=== PATIENT | female | born 1960 | race Hispanic/Latino ===

== ENCOUNTER 2017-10-07 09:56 | Emergency (ER) | payer BC ==
[2017-10-07] MEDS ORDERED: SODIUM CHLORIDE 0.9% 1000ML 1,000 ML IV ONE (10:56)
[2017-10-07 10:59] LABS: APPEARANCE,URINE Clear (CLEAR); BILIRUBIN,URINE Negative (NEGATIVE); COLOR,URINE Yellow (YELLOW); GLUCOSE, URINE (UA) Negative (NEGATIVE); KETONES,URINE Negative (NEGATIVE); LEUKOCYTE ESTERASE ,URINE Negative (NEGATIVE); NITRATE,URINE Negative (NEGATIVE); OCCULT BLOOD,URINE Negative (NEGATIVE); PROTEIN,URINE Negative (NEGATIVE); UROBILINOGEN,URINE 0.2 mg/dL (0.2-1.0)
[2017-10-07 11:12] LABS: BASOPHILS % (AUTO) 0.4 % (0.0-5.0); EOSINOPHILS % (AUTO) 0.5 % (0.0-8.0); HEMATOCRIT 44.4 % (36-48); LYMPHOCYTES % (AUTO) 24.4 % (21.0-51.0); MEAN CORPUSCULAR HGB CONC 33.7 g/dL (32.0-36.0); MEAN CORPUSCULAR VOLUME 85.9 fL (79-99); MONOCYTES % (AUTO) 6.2 % (3.0-13.0); NEUTROPHILS % (AUTO) 68.5 % (40.0-77.0); NUCLEATED RED BLOOD CELLS 0.1 % (0.0-0.19); PLATELET COUNT (AUTO) 242 K/uL (130-400); RED BLOOD CELL COUNT(AUTO) 5.17 MIL/uL (4.00-5.50); RED CELL DISTRIBUTION WIDTH 15.3 % (11.0-15.5); WHITE BLOOD COUNT (AUTO) 7.9 K/uL (4.8-10.8)
[2017-10-07] MEDS ORDERED: SUCRALFATE 1 GM TABLET ONE (11:16)
[2017-10-07 11:17] LABS: CREATININE 1.1 mg/dL (0.5-1.5); POTASSIUM 3.6 mmol/L (3.5-5.1)
[2017-10-07] MEDS ORDERED: FAMOTIDINE/PF 20 MG/2 ML VIAL IV ONE (11:17)
[2017-10-07 11:26] LABS: ALBUMIN 3.9 g/dL (3.5-5.0); BILIRUBIN,TOTAL 0.4 mg/dL (0.2-1.0); TOTAL PROTEIN, SERUM 8.2 g/dL (6.0-8.3)
[2017-10-07] MEDS ORDERED: KETOROLAC TROMETHAMINE 30MG/ML ONE (13:50)
[2017-10-07] MEDS ORDERED: HYOSCYAMINE SULFATE 0.125 MG TAB.SUBL SL ONE (13:51)
== END 2017-10-07 16:42 | disposition home or self-care (01) ==
LOC: EDH 09:56
DX: R10.13 Epigastric pain (principal); R19.7 Diarrhea, unspecified; I10 Essential (primary) hypertension; K21.9 Gastro-esophageal reflux disease without esophagitis; J45.909 Unspecified asthma, uncomplicated
CPT/HCPCS: 36415; 74176; 80053; 81003; 83690; 85025; 86677; 96361; 96374; 96375; 99285; J1885; J3490; J7030

== ENCOUNTER → 2021-12-01 | Outpatient (CLI) | payer BC | END | disposition home or self-care (01) | LOC: RAH 09:36 | PROVIDERS: ATTEND Family Medicine | DX: N63.42 Unspecified lump in left breast, subareolar (principal); N63.22 Unspecified lump in the left breast, upper inner quadrant; N63.41 Unspecified lump in right breast, subareolar; N63.14 Unspecified lump in the right breast, lower inner quadrant; N64.53 Retraction of nipple; N64.4 Mastodynia; R92.1 Mammographic calcification found on diagnostic imaging of breast | CPT/HCPCS: 77066 ==

== ENCOUNTER 2024-08-02 05:19 | Emergency (ER) | payer BC, MEDICARE ==
[~2024-08-02] VITALS: Ht 154.9 cm; Wt 100.7 kg
[2024-08-02] MEDS: Solu-medROL 125MG VIAL IVP ONE (05:52)
[2024-08-02 05:58] LABS: BASOPHILS # (AUTO) 0.03 K/uL (0.00-0.20); BASOPHILS % (AUTO) 0.4 % (0.0-5.0); EOSINOPHILS % (AUTO) 5.5 % (0.0-8.0); HEMATOCRIT 32.4 % (36-48); LYMPHOCYTES % (AUTO) 27.7 % (21.0-51.0); MEAN CORPUSCULAR HEMOGLOBIN 27.7 pg (27.0-33.0); MEAN CORPUSCULAR HGB CONC 30.9 g/dL (32.0-36.0); MEAN CORPUSCULAR VOLUME 89.8 fL (79-99); MONOCYTES # (AUTO) 0.5 K/uL (0.1-1.0); NEUTROPHILS # (AUTO) 4.2 K/uL (1.8-7.7); PLATELET COUNT (AUTO) 206 K/uL (130-400); RED BLOOD CELL COUNT(AUTO) 3.61 MIL/uL (4.00-5.50); WHITE BLOOD COUNT (AUTO) 7.3 K/uL (4.8-10.8)
[2024-08-02 06:05] LABS: SARS-CoV-2, RNA, NAAT NEGATIVE SARS CoV-2 (NEGATIVE)
[2024-08-02 06:09] LABS: INFLUENZA TYPE A Negative For Type A (NEGATIVE); INFLUENZA TYPE B Negative For Type B (NEGATIVE)
[2024-08-02 06:13] LABS: CREATININE 1.9 mg/dL (0.5-1.0); POTASSIUM 4.8 mmol/L (3.5-5.1)
[2024-08-02 06:30] VITALS: PULSE 69; RESP 20
[2024-08-02] MEDS: IpraTROPium/alBUTERol SULFATE 3 ML SOLUTION IH ONE (06:30)
[2024-08-02] MEDS: BUDESONIDE 0.5 MG/2 ML INH IH SCH (06:30)
[2024-08-02 06:43] LABS: B-TYPE NATRIURETIC PEPTIDE 65 pg/mL (0-100)
--- NOTE | 2024-08-02 06:44 | ERN ---
General Chief Complaint: Cough Stated Complaint: COUGH Time Seen by MD: 05:25 History of Present Illness Initial Comments Ms. Felton is a 64-year-old female significant past medical history of metastatic breast cancer and asthma comes in with a chief complaint of cough. Patient has been having increased cough and congestion. She reports that she was recently at her mom's nursing and was triggered by the smell. Patient reports that she has been having issues with breathing. Allergies: Coded Allergies: amoxicillin (Unverified Allergy, Unknown, 08/02/24) Past Medical History Past Medical History: Asthma, Diabetes-Type II, Pneumonia, Other Medical History Other: STAGE 4 LEFT BREAST CANCER Past Surgical History: None ROS Dictation Constitutional: Negative for fever,chills, and weight loss Eyes: Negative for injury, pain,redness, and discharge ENT: Negative for injury,pain or swelling Cardiovascular: Negative for chest pain, palpitations, and edema Respiratory: Positive for shortness of breath Abdomen/GI: Negative for abdominal pain, nausea, vomiting, diarrhea, and constipation Back: Negative for injury and pain : Negative for injury, bleeding and discharge MS/Extremity: Negative for injury and deformity Skin: Negative for rash, and discoloration Neuro: Negative for headache, weakness, numbness, tingling, and seizure Psych: Negative for suicide ideation, homicidal ideation, and hallucinations Physical Exam Physical Exam Dictation General: awake, alert, NAD Head/Face: Normocephalic, atraumatic Eyes: PERRL ENT: oral cavity clear, TMs clear, no signs of infection Neck: Trachea midline, supple, Cardiovascular: RRR, normal S1/S2, No MRGs, no JVD Respiratory: Diminished breath sounds bilaterally Abdomen: Soft, non-tender, non-distended, normal bowel sounds Skin: Warm, dry, normal turgor, no rash MS/Extremity: Pulses equal Neuro: COAx4, GCS 15, strength 5/5, CN 2-12 intact Psych: Normal behavior, mood, and affect normal Results Laboratory and Microbiology Lab and Micro Result Laboratory Tests Test 08/02/24 05:45 08/02/24 05:51 Influenza Type A Antigen Negative For Type A Influenza Type B Antigen Negative For Type B SARS-CoV-2, RNA, NAAT NEGATIVE SARS CoV-2 White Blood Count 7.3 K/uL (4.8-10.8) Red Blood Count 3.61 MIL/uL (4.00-5.50) L Hemoglobin 10.0 g/dL (12.0-16.0) L Hematocrit 32.4 % (36-48) L Mean Corpuscular Volume 89.8 fL (79-99) Mean Corpuscular Hemoglobin 27.7 pg (27.0-33.0) Mean Corpuscular Hemoglobin Concent 30.9 g/dL (32.0-36.0) L Red Cell Distribution Width 22.0 % (11.0-15.5) H Platelet Count 206 K/uL (130-400) Mean Platelet Volume 10.2 fL (7.5-10.5) Immature Granulocyte % (Auto) 1.4 % (0-1) H Neutrophils (%) (Auto) 58.0 % (40.0-77.0) Lymphocytes (%) (Auto) 27.7 % (21.0-51.0) Monocytes (%) (Auto) 7.0 % (3.0-13.0) Eosinophils (%) (Auto) 5.5 % (0.0-8.0) Basophils (%) (Auto) 0.4 % (0.0-5.0) Neutrophils # (Auto) 4.2 K/uL (1.8-7.7) Lymphocytes # (Auto) 2.0 K/uL (1.0-4.8) Monocytes # (Auto) 0.5 K/uL (0.1-1.0) Eosinophils # (Auto) 0.40 K/uL (0.00-0.70) Basophils # (Auto) 0.03 K/uL (0.00-0.20) Absolute Immature Granulocyte (auto 0.10 K/uL (0-1) Nucleated Red Blood Cells 0.0 % (0.0-0.19) Red Blood Cell Morphology See comments Sodium Level 141 mmol/L (136-145) Potassium Level 4.8 mmol/L (3.5-5.1) Chloride Level 107 mmol/L (101-111) Carbon Dioxide Level 27 mmol/L (21-32) Blood Urea Nitrogen 26 mg/dL (7-18) H Creatinine 1.9 mg/dL (0.5-1.0) H Glomerular Filtration Rate Calc 29 mL/min (>90) Random Glucose 99 mg/dL (70-105) Total Calcium 8.7 mg/dL (8.5-10.1) B-Type Natriuretic Peptide 65 pg/mL (0-100) MDM Patient was feeling better after inhaled corticosteroids and albuterol. Patient will be discharge MDM: Differential diagnosis: Asthma exacerbation Rationale: Tests considered and ordered secondary to shared decision making include: Previous outside records reviewed: Old ER visits. Risk of complication and/or morbidity or mortality of patient management: None Medications-Per medication reconciliation Need for hospitalization: Patient does not meet criteria for hospitalization. Need for emergency major/minor surgery: No There are no social concerns with this patient. Prescription drug management Prescriptions will include symptomatic care Patient's prior external medical records from other ER visits were reviewed by me as indicated. Prior testing and results from previous visits were reviewed. Prior tests were taken into account with medical decision making and resource utilization, independent historian/historians were used to obtain complete medical history. I independently interpreted the test that were performed, results were reviewed by me and considered findings on radiology if ordered. Medical management and examination interpretation discussions were had by me with other qualified healthcare professionals as indicated for the patient's c are. ED Course Orders Procedure Category Date Status Time Influenza Type A & B, LAB 08/02/24 Complete Rapid 05:38 Covid Rna Naat LAB 08/02/24 Complete 05:38 Cbc With Differential LAB 08/02/24 Complete 05:42 B-Type Natriuretic LAB 08/02/24 Complete Peptide 05:42 Chest 1vw RAD 08/02/24 Taken 05:42 Ipratropium/Albuterol PHA 08/02/24 Complete Neb (Duoneb) 06:00 Methylprednisolone PHA 08/02/24 Complete Succ 125mg (Solu-Medr 06:00 Basic Metabolic Panel LAB 08/02/24 Complete 05:42 Budesonide 0.5 Mg/2 PHA 08/02/24 In Process Ml Inh (Pulmicort 0. 06:00 Current Medications Medications (Trade) Dose Ordered Sig/Ambar Route PRN Reason Start Time Stop Time Status Last Admin Dose Admin Albuterol (DUOneb) 1 udvial ONCE ONCE IH 08/02/24 06:00 08/02/24 06:01 DC 08/02/24 06:30 Budesonide (Pulmicort 0.5 Mg/2ml) 0.5 mg BIDRESP IH 08/02/24 06:00 12/30/24 05:59 08/02/24 06:30 Methylprednisolone Sodium Succinate (Solu-medROL 125MG) 125 mg ONCE ONCE IVP 08/02/24 06:00 08/02/24 06:01 DC 08/02/24 05:52 Vital Signs Date Time Temp Pulse Resp B/P (MAP) Pulse Ox O2 Delivery O2 Flow Rate FiO2 08/02/24 06:30 69 20 08/02/24 05:48 80 16 126/64 99 Room Air* 0 21 08/02/24 05:21 96.8 71 18 127/86 100 Room Air DX & DISP Disposition: Discharge Departure Impression: Primary Impression: Asthma exacerbation Condition: Stable Scripts Budesonide/Formoterol Fumarate (Symbicort 160-4.5 Mcg Inhaler) 160 Mcg-4.5 Mcg/Actuation Hfa.aer.ad 2 PUFF IH BID for 30 Days, #10.2 GM 0 Refills Prov: ROSEANNA LOPES MD 08/02/24 Additional Instructions: Please follow up with your primary care physician for continuance of care in the next 1-7 days. Please continue to take your rescue inhaler as well as your new medication as your maintenance medicine for your asthma. Referrals: CLARISSA FINNEY MD (PCP) ROSEANNA LOPES MD Aug 02, 2024 06:44
[2024-08-02] MEDS ORDERED: BUDE10.2 IH (06:55)
[2024-08-02] MEDS ORDERED: LEVO-70 PO (07:06)
[2024-08-02 07:34] VITALS: BP 145/85; PULSE 78; RESP 18; TEMP 98.2; O2SAT 98
--- NOTE | 2024-08-02 08:02 | HMCIMG ---
CHEST 1VW HISTORY: Dyspnea COMPARISON: None FINDINGS: A frontal projection of the chest was obtained. Mild bilateral pulmonary infiltrates are seen may be related to mild pulmonary vascular congestion with possible superimposed pneumonitis. The heart is borderline enlarged. Right venous catheter is seen. Degenerative changes are seen. IMPRESSION: 1. Mild bilateral pulmonary infiltrates are seen may be related to mild pulmonary vascular congestion with possible superimposed pneumonitis.
== END 2024-08-02 07:36 | disposition home or self-care (01) ==
LOC: EDH 05:19
DX: J45.901 Unspecified asthma with (acute) exacerbation (principal); E11.9 Type 2 diabetes mellitus without complications; Z20.822 Contact with and (suspected) exposure to COVID-19; Z79.51 Long term (current) use of inhaled steroids; Z88.0 Allergy status to penicillin
CPT/HCPCS: 99284; 96374; 71045; 87635; 80048; 83880; 85025; 87804 ×2; 36415; 94640; J2919